=== PATIENT | female | born 1965 | race Caucasian/White ===

== ENCOUNTER → 2016-09-26 | Outpatient (CLI) | payer BC ==
[~2016-09-26] MED LIST: COREG 3.125M3.125 MG PO; COUMADIN5 MG PO; FLEXERIL10 MG PO; LOMOTIL 2.5MG.2.5 MG PO; MECLIZINE HYDRO25 MG PO; PAXIL20 MG PO; PYRIDIUM 200MG200 MG PO; TOPROL XL 100M100 MG PO; TYLENOL W/CODEI1 TA2 PO; WARFARIN SOD5 MG PO; XARELTO15 MG PO; ZOFRAN4 MG PO
--- NOTE | 2016-09-27 13:56 | RADIOLOGY REPORT PS360 ---
DIG MAMM-SCREEN [place] W/CAD CAD Screening ORDERING PHYSICIAN : DANE NEWMAN PATIENT AGE: 51 years GENDER: Female COMPARISON: Previous mammograms: July 2012, September INDICATION: Routine screening no new complaints. No hormones. Noncontributory family history. 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 R2 CAD reviewed. FINDINGS: Fairly Low-density breast bilaterally. Minimal residual fibroglandular elements No dominant mass nor suspicious calcifications either breast. RIGHT BREAST: The minor area stippled density at the central right breast reflecting stable feature, unchanged since at least 2011. Not of concern LEFT BREAST: Prominent vein at the left breast is again noted similar to prior study. Unchanged. Any other prominent venous structures left chest left arm? ... IMPRESSION: Stable bilateral mammogram. No new areas of concern 1 BI-RADS CATEGORY: 1 RECOMMENDED FOLLOWUP: 12M 12 MONTH FOLLOW-UP (A letter has been sent to the patient regarding results of the study.)
== END ==
LOC: RAD 08:17
DX: Z12.31 Encounter for screening mammogram for malignant neoplasm of breast (principal)
CPT/HCPCS: G0202

== ENCOUNTER 2016-10-17 07:53 | Outpatient (CLI) | payer BC | END 2016-10-17 13:42 | LOC: ACC 07:53 | DX: I82.409 Acute embolism and thrombosis of unspecified deep veins of unspecified lower extremity (principal); Z79.01 Long term (current) use of anticoagulants; Z51.81 Encounter for therapeutic drug level monitoring | CPT/HCPCS: G0463 ==

== ENCOUNTER 2017-07-17 07:49 | Outpatient (CLI) | payer BC | END 2017-07-17 09:47 | LOC: ACC 07:49 | DX: I82.409 Acute embolism and thrombosis of unspecified deep veins of unspecified lower extremity (principal); Z79.01 Long term (current) use of anticoagulants; Z51.81 Encounter for therapeutic drug level monitoring | CPT/HCPCS: G0463 ==

== ENCOUNTER 2017-08-02 11:42 | Emergency (ER) | payer BC ==
[~2017-08-02] VITALS: Ht 165.1 cm; Wt 122.5 kg
--- OUTSIDE RECORDS SUMMARY | 2017-08-02 11:53 | External Medical Summary Rpt | CCD ---
Author Author , ANKIT PHAM Address Unknown Phone Care Team Providers Care Compressor Repairer Name Role Phone Alvaro Lopez MD, Unavailable Unavailable Alvaro Lopez MD Purpose Continuity of Care Document - 10-17-2013 through 2016 Problems Code Diagnosis DOS Provider Status 200.70 200.70 10-22-2013 [place] LARGE CELL [facility] LYMPHOMA, [facility] UNS SITE, EXTRANODAL & SOLID ORGAN 278.00 278.00 10-22-2013 [place] OBESITY, [facility] 285.9 285.9 10-22-2013 [place] ANEMIA [facility] 300.00 300.00 10-22-2013 [place] ANXIETY [facility] STATE [facility] 311 311 10-22-2013 [place] DEPRESSIVE [facility] DISORDER [facility] NEC 415.19 415.19 OTH 10-22-2013 [place] PULMON [facility] EMBOLISM/IN Hospital FARCT 427.61 427.61 10-22-2013 [place] ATRIAL [facility] PREMATURE [facility] BEATS 427.69 427.69 10-22-2013 [place] PREMATURE [facility] BEATS [facility] 453.42 453.42 10-22-2013 [place] ACUTE [facility] VENOUS [facility] EMBOLISM & THROMBOSIS DEEP VESSELS DISTAL LE 530.81 530.81 10-22-2013 [place] ESOPHAGEAL [facility] REFLUX Hospital 553.3 553.3 10-22-2013 [place] DIAPHRAGMAT [facility] IC HERNIA Hospital 693.0 693.0 DRUG 10-22-2013 [place] DERMATITIS [facility] E934.2 E934.2 ADV 10-22-2013 [place] EFF [facility] ANTICOAGULA Hospital NTS Allergies, Adverse Reactions, Alerts Type Drug Allergy Propensity to adverse reactions to drug Adverse Reaction to Substance Substance Reaction Severity Rivaroxaban rash Unknown Verapamil EXACERBATION OF PVC'S Unknown Oxycodone EXACERBATION OF PVC'S Unknown Hydrocodone EXACERBATION OF PVC'S Severe Medications Na ND Rx Da Fi Fi Am Da Di Ph RX Ph St me C No te ll ll ou ys ag ar # ys at rm s nt no ma ic us Or Da si cy ia de te s n re d CO 00 01 1 No UM 05 -3 AD 60 1- Lo IN 17 20 ng 47 14 er 10 0 Ac MG ti ve TA BL ET MA 00 01 1 No PA 90 -3 P 41 1- Lo 32 98 20 ng 5 26 14 er MG 1 Ac TA ti BL ve ET CO 00 01 2 No UM 05 -2 AD 60 9- Lo IN 17 20 ng 37 14 er 7. 5 5 Ac MG ti ve TA BL ET AC 00 01 4 No YC 09 -2 LO 38 8- Lo 94 20 ng R 30 14 er 40 1 0 Ac MG ti ve TA BL ET ME 49 01 4 No TO 88 -2 IN 40 8- Lo OL 40 20 ng OL 60 14 er 1 COCHRAN Ac CC ti ve ER 10 0 MG TA B PA 00 01 4 No RO 90 -2 XE 45 8- Lo TI 67 20 ng NE 76 14 er 1 HC Ac L ti 20 ve MG TA BL ET He 00 01 0 No pa 40 -2 ri 91 8- Lo n 40 20 ng 5, 23 14 er 00 1 0 Ac Un ti it ve s/ Ml Sy ri ng e CO 00 01 1 No UM 05 -2 AD 60 8- Lo IN 17 20 ng 5 27 14 er 0 MG Ac ti TA ve BL ET 00 01 4 No AI 12 -2 FE 10 8- Lo NE 63 20 ng SI 81 14 er N 0 DM Ac ti SY ve RU P HE 00 01 4 No PA 40 -2 RI 97 7- Lo N- 76 20 ng D5 10 14 er W 3 25 Ac ,0 ti 00 ve UN IT /5 00 ML Sa 63 01 1 No li 80 -2 ne 70 7- Lo 10 20 ng Fl 07 14 er us 5 h Ac 10 ti ML ve Sy ri ng e DI 00 01 0 No PH 90 -2 EN 45 7- Lo HY [address] 66 14 er AM 1 IN Ac E ti 25 ve MG CA PS UL E RA 00 01 0 No D- 27 -2 IS 01 7- Lo OV 31 20 ng UE 63 14 er -3 5A 70 Ac ; ti 10 ve 0M L SO 00 01 0 No DI 40 -2 UM 94 7- Lo 88 20 ng CH 82 14 er LO 0 RI Ac DE ti ve 0. 9% AL RA 63 01 0 No D- 80 -2 SA 70 7- Lo LI 10 20 ng NE 07 14 er 5A FL Ac US ti H ve 10 ML SY RI NG E He 00 01 0 No pa 40 -2 ri 91 7- Lo n 40 20 ng 5, 23 14 er 00 1 0 Ac Un ti it ve s/ Ml Sy ri ng e Vital Signs 10-22-2013 09:55 Name Value Interpretat Reference Comment ion Range Body 98.0 [degF] Temperature BP 73 mm[Hg] Diastolic BP Systolic 137 mm[Hg] Heart 79 /min Rate/Pulse Respiratory 18 /min Rate 10-22-2013 08:01 Name Value Interpretat Reference Comment ion Range O2% 95 % 10-17-2013 23:18 Name Value Interpretat Reference Comment ion Range Height 165.10 cm Weight 115.214 kg Measured 10-17-2013 17:17 Name Value Interpretat Reference Comment ion Range Body 98.7 [degF] Temperature BP 89 mm[Hg] Diastolic BP Systolic 142 mm[Hg] Heart 105 /min Rate/Pulse O2% 98 % Respiratory 20 /min Rate Weight 0 [oz_av] Measured Results Labs Lab Lab Date Result Refere Interp Status Commen Order Detail nces retati t Range on Whole blood INR measurement (07-17-2017 08:15) Whole = 2.4 0.9-1.1 complet blood 017 ed INR 08:15 measure ment Comment: Comment: Results sent to: Alvaro Lopez MD 07/17/17 0942 Comment: Nain Alan Pharmacist recommendation for Warfarin Comment: therapy is: PATIENT INR 2.4 TODAY VIA FINGERSTICK. Comment: RECOMMENDED PATIENT CONTINUE WITH WARFARIN 5 MG DAILY. Comment: Comment: FOR DETAILED INFORMATION-PLEASE REVIEW PROGRESS NOTE Comment: IN THE ASSESSMENTS AND ANTICOAGULATION CLINIC SECTION Comment: ANTICOAGULATION CLINIC IN PCI/CLINICAL REVIEW Comment: INDICATION INR RANGE Comment: Comment: THERAPY FOR DVT, PE, ATRIAL FIB; 2.0 - 3.0 Comment: PROPHYLAXIS FOR VTE Comment: Comment: THERAPY FOR MECHANICAL HEART 2.5 - 3.5 Comment: VALVE; PREVENTION OF SYSTEMIC Comment: EMBOLISM SECONDARY TO AMI PROTIME/INR (10-22-2013 06:15) PROTHRO 25.4 9.9-11. complet MBIN 014 SECONDS 6 ed TIME 06:15 INR Bld 02-01-2 2.35 0.9-1.1 complet 014 UNK ed 06:15 ACT PARTIAL THROMBO TIME (10-21-2013 21:15) ACT Greater 25.3-32 High complet PARTIAL 014 than .0 alert ed 21:15 275.0 THROMBO SECONDS TIME PROTIME/INR (10-21-2013 21:15) PROTHRO 22.7 9.9-11. complet MBIN 014 SECONDS 6 ed TIME 21:15 INR Bld 2.11 0.9-1.1 complet 014 UNK ed 21:15 ACT PARTIAL THROMBO TIME (10-21-2013 14:00) ACT 113.3 25.3-32 High complet PARTIAL 014 SECONDS .0 alert ed 14:00 THROMBO TIME PROTIME/INR (10-21-2013 06:40) PROTHRO 17.4 9.9-11. complet MBIN 014 SECONDS 6 ed TIME 06:40 INR Bld 1.62 0.9-1.1 complet 014 UNK ed 06:40 ACT PARTIAL THROMBO TIME (10-21-2013 06:40) ACT 84.0 25.3-32 High complet PARTIAL 014 SECONDS .0 alert ed 06:40 THROMBO TIME CBC with AUTO DIFF (10-21-2013 06:40) WBC # 5.3 4.8-10. complet Bld 014 K/MM3 8 ed Auto 06:40 RBC # 3.96 4.2-5.4 complet Bld 014 M/mm3 ed Auto 06:40 Hgb 11.7 12.2-16 complet Bld-mCn 014 g/dL .2 ed c 06:40 Hct Fr 33.1 % 37.0-47 complet Bld 014 .0 ed 06:40 MCV RBC 83.5 fl 82.2-97 complet 014 .8 ed 06:40 MCH RBC 29.4 pg 27-31.2 complet Qn 014 ed Auto 06:40 MEAN 35.2 31.8-35 complet CORPUSC 014 g/dl .4 ed ULAR 06:40 HGB CONC RDW RBC 16.3 % 11.5-17 complet Auto 014 .5 ed 06:40 Platele 311 142-424 complet t Bld 014 K/mm3 ed Ql 06:40 Manual MEAN 8.4 fl 7.4-10. complet PLATELE 014 4 ed T 06:40 VOLUME Granulo 47.0 % 37.0-80 complet cytes 014 .0 ed Fr Bld 06:40 Auto LYMPH % 43.7 % 10-50.0 complet 014 ed 06:40 Monocyt 6.2 % 1.7-9.3 complet es Fr 014 ed Bld 06:40 Auto Eosinop 2.6 % 0.1-12. complet hil Fr 014 0 ed Bld 06:40 Auto Basophi 0.5 % 0.1-2.0 complet ls Fr 014 ed Bld 06:40 Auto Granulo 2.5 1.8-7.8 complet cytes # 014 K/mm3 ed Bld 06:40 Auto Lymphoc 2.3 0.7-4.5 complet ytes Fr 014 K/mm3 ed Bld 06:40 Auto Monocyt 0.3 0.1-1.0 complet es # 014 K/mm3 ed Bld 06:40 Auto Eosinop 0.1 0.0-0.4 complet hil # 014 K/mm3 ed Bld 06:40 Auto Basophi 0.0 0-0.2 complet ls # 014 K/MM3 ed Bld 06:40 Auto ACT PARTIAL THROMBO TIME (10-20-2013 23:23) ACT 72.8 25.3-32 High complet PARTIAL 014 SECONDS .0 alert ed 23:23 THROMBO TIME ACT PARTIAL THROMBO TIME (10-20-2013 16:20) ACT 95.8 25.3-32 High complet PARTIAL 014 SECONDS .0 alert ed 16:20 THROMBO TIME ACT PARTIAL THROMBO TIME (10-20-2013 06:15) ACT 88.9 25.3-32 High complet PARTIAL 014 SECONDS .0 alert ed 06:15 THROMBO TIME ACT PARTIAL THROMBO TIME (10-19-2013 22:29) ACT 52.4 25.3-32 High complet PARTIAL 014 SECONDS .0 alert ed 22:29 THROMBO TIME ACT PARTIAL THROMBO TIME (10-19-2013 15:00) ACT 48.6 25.3-32 complet PARTIAL 014 SECONDS .0 ed 15:00 THROMBO TIME PROTIME/INR (10-19-2013 06:15) PROTHRO 11.0 9.9-11. complet MBIN 014 SECONDS 6 ed TIME 06:15 INR Bld 1.03 0.9-1.1 complet 014 UNK ed 06:15 ACT PARTIAL THROMBO TIME (10-19-2013 06:15) ACT 64.7 25.3-32 High complet PARTIAL 014 SECONDS .0 alert ed 06:15 THROMBO TIME CBC with AUTO DIFF (10-19-2013 06:15) WBC # 5.8 4.8-10. complet Bld 014 K/MM3 8 ed Auto 06:15 RBC # 3.87 4.2-5.4 complet Bld 014 M/mm3 ed Auto 06:15 Hgb 11.4 12.2-16 complet Bld-mCn 014 g/dL .2 ed c 06:15 Hct Fr 33.0 % 37.0-47 complet Bld 014 .0 ed 06:15 MCV RBC 85.2 fl 82.2-97 complet 014 .8 ed 06:15 MCH RBC 29.6 pg 27-31.2 complet Qn 014 ed Auto 06:15 MEAN 34.7 31.8-35 complet CORPUSC 014 g/dl .4 ed ULAR 06:15 HGB CONC RDW RBC 15.8 % 11.5-17 complet Auto 014 .5 ed 06:15 Platele 336 142-424 complet t Bld 014 K/mm3 ed Ql 06:15 Manual MEAN 7.2 fl 7.4-10. complet PLATELE 014 4 ed T 06:15 VOLUME Granulo 48.8 % 37.0-80 complet cytes 014 .0 ed Fr Bld 06:15 Auto LYMPH % 41.7 % 10-50.0 complet 014 ed 06:15 Monocyt 6.2 % 1.7-9.3 complet es Fr 014 ed Bld 06:15 Auto Eosinop 2.4 % 0.1-12. complet hil Fr 014 0 ed Bld 06:15 Auto Basophi 0.9 % 0.1-2.0 complet ls Fr 014 ed Bld 06:15 Auto Granulo 2.8 1.8-7.8 complet cytes # 014 K/mm3 ed Bld 06:15 Auto Lymphoc 2.4 0.7-4.5 complet ytes Fr 014 K/mm3 ed Bld 06:15 Auto Monocyt 0.4 0.1-1.0 complet es # 014 K/mm3 ed Bld 06:15 Auto Eosinop 0.1 0.0-0.4 complet hil # 014 K/mm3 ed Bld 06:15 Auto Basophi 0.1 0-0.2 complet ls # 014 K/MM3 ed Bld 06:15 Auto ACT PARTIAL THROMBO TIME (10-18-2013 23:57) ACT 56.3 25.3-32 High complet PARTIAL 014 SECONDS .0 alert ed 23:57 THROMBO TIME ACT PARTIAL THROMBO TIME (10-18-2013 16:45) ACT 53.4 25.3-32 High complet PARTIAL 014 SECONDS .0 alert ed 16:45 THROMBO TIME ACT PARTIAL THROMBO TIME (10-18-2013 09:30) ACT 42.2 25.3-32 complet PARTIAL 014 SECONDS .0 ed 09:30 THROMBO TIME BASIC METABOLIC PANEL (10-18-2013 06:40) Glucose 102 74-106 complet 014 mg/dL ed Bld-mCn 06:40 c BUN 9 mg/dL 7-18 complet Bld-mCn 014 ed c 06:40 Creat 0.8 0.6-1.0 complet SerPl-m 014 mg/dL ed Cnc 06:40 Creat 155 50-200 complet Cl 014 ML/MIN ed predict 06:40 ed SerPl C-G-vRa te GFR/BSA 76 59- complet .pred 014 ML/MIN ed SerPl 06:40 Schwart z-vRate Sodium 140 136-145 complet SerPl-s 014 mmoL/L ed Cnc 06:40 Potassi 3.5 3.5-5.1 complet um 014 mmoL/L ed SerPl-s 06:40 Cnc Chlorid 104 98-107 complet e 014 mmoL/L ed SerPl-s 06:40 Cnc CO2 30 21.0-32 complet SerPl-s 014 mmoL/L .0 ed Cnc 06:40 Calcium 8.7 8.5-10. complet 014 mg/dL 1 ed SerPl-m 06:40 Cnc CBC with AUTO DIFF (10-18-2013 06:40) WBC # 6.4 4.8-10. complet Bld 014 K/MM3 8 ed Auto 06:40 RBC # 3.94 4.2-5.4 complet Bld 014 M/mm3 ed Auto 06:40 Hgb 11.4 12.2-16 complet Bld-mCn 014 g/dL .2 ed c 06:40 Hct Fr 33.9 % 37.0-47 complet Bld 014 .0 ed 06:40 MCV RBC 86.1 fl 82.2-97 complet 014 .8 ed 06:40 MCH RBC 28.8 pg 27-31.2 complet Qn 014 ed Auto 06:40 MEAN 33.5 31.8-35 complet CORPUSC 014 g/dl .4 ed ULAR 06:40 HGB CONC RDW RBC 15.8 % 11.5-17 complet Auto 014 .5 ed 06:40 Platele 349 142-424 complet t Bld 014 K/mm3 ed Ql 06:40 Manual MEAN 7.6 fl 7.4-10. complet PLATELE 014 4 ed T 06:40 VOLUME Granulo 48.0 % 37.0-80 complet cytes 014 .0 ed Fr Bld 06:40 Auto LYMPH % 43.7 % 10-50.0 complet 014 ed 06:40 Monocyt 5.6 % 1.7-9.3 complet es Fr 014 ed Bld 06:40 Auto Eosinop 2.1 % 0.1-12. complet hil Fr 014 0 ed Bld 06:40 Auto Basophi 0.6 % 0.1-2.0 complet ls Fr 014 ed Bld 06:40 Auto Granulo 3.1 1.8-7.8 complet cytes # 014 K/mm3 ed Bld 06:40 Auto Lymphoc 2.8 0.7-4.5 complet ytes Fr 014 K/mm3 ed Bld 06:40 Auto Monocyt 0.4 0.1-1.0 complet es # 014 K/mm3 ed Bld 06:40 Auto Eosinop 0.1 0.0-0.4 complet hil # 014 K/mm3 ed Bld 06:40 Auto Basophi 0.0 0-0.2 complet ls # 014 K/MM3 ed Bld 06:40 Auto ACT PARTIAL THROMBO TIME (10-18-2013 03:50) ACT 44.6 25.3-32 complet PARTIAL 014 SECONDS .0 ed 03:50 THROMBO TIME COMPREHENSIVE METABOLIC PANEL (10-17-2013 17:45) Glucose 99 74-106 complet 014 mg/dL ed Bld-mCn 17:45 c BUN 10 7-18 complet Bld-mCn 014 mg/dL ed c 17:45 Creat 0.8 0.6-1.0 complet SerPl-m 014 mg/dL ed Cnc 17:45 GFR/BSA 76 59- complet .pred 014 ML/MIN ed SerPl 17:45 Schwart z-vRate Sodium 138 136-145 complet SerPl-s 014 mmoL/L ed Cnc 17:45 Potassi 3.8 3.5-5.1 complet um 014 mmoL/L ed SerPl-s 17:45 Cnc Chlorid 101 98-107 complet e 014 mmoL/L ed SerPl-s 17:45 Cnc CO2 30 21.0-32 complet SerPl-s 014 mmoL/L .0 ed Cnc 17:45 Calcium 9.1 8.5-10. complet 014 mg/dL 1 ed SerPl-m 17:45 Cnc Prot 7.7 6.4-8.2 complet SerPl-m 014 gm/dL ed Cnc 17:45 Albumin 3.3 3.4-5.0 complet 014 gm/dL ed SerPl-m 17:45 Cnc Globuli 4.4 1.3-3.2 complet n 014 gm/dL ed Ser-mCn 17:45 c Albumin 0.8 UNK 1.1-1.8 complet /Glob 014 ed SerPl-m 17:45 Rto Bilirub 0.6 0.2-1.0 complet 014 mg/dL ed SerPl-m 17:45 Cnc AST 18 U/L 15-37 complet SerPl-c 014 ed Cnc 17:45 ALT 33 U/L 12-78 complet SerPl-c 014 ed Cnc 17:45 ALP 108 U/L 50-136 complet SerPl-c 014 ed Cnc 17:45 CBC with AUTO DIFF (10-17-2013 17:45) WBC # 10-17-2 6.1 4.8-10. complet Bld 014 K/MM3 8 ed Auto 17:45 RBC # 10-17-2 4.33 4.2-5.4 complet Bld 014 M/mm3 ed Auto 17:45 Hgb 12.5 12.2-16 complet Bld-mCn 014 g/dL .2 ed c 17:45 Hct Fr 36.7 % 37.0-47 complet Bld 014 .0 ed 17:45 MCV RBC 84.7 fl 82.2-97 complet 014 .8 ed 17:45 MCH RBC 28.8 pg 27-31.2 complet Qn 014 ed Auto 17:45 MEAN 01-27-2 34.0 31.8-35 complet CORPUSC 014 g/dl .4 ed ULAR 17:45 HGB CONC RDW RBC 15.5 % 11.5-17 complet Auto 014 .5 ed 17:45 Platele 409 142-424 complet t Bld 014 K/mm3 ed Ql 17:45 Manual MEAN 7.3 fl 7.4-10. complet PLATELE 014 4 ed T 17:45 VOLUME Granulo 59.6 % 37.0-80 complet cytes 014 .0 ed Fr Bld 17:45 Auto LYMPH % 32.9 % 10-50.0 complet 014 ed 17:45 Monocyt 5.5 % 1.7-9.3 complet es Fr 014 ed Bld 17:45 Auto Eosinop 1.4 % 0.1-12. complet hil Fr 014 0 ed Bld 17:45 Auto Basophi 0.7 % 0.1-2.0 complet ls Fr 014 ed Bld 17:45 Auto Granulo 3.6 1.8-7.8 complet cytes # 014 K/mm3 ed Bld 17:45 Auto Lymphoc 2 2.0 0.7-4.5 complet ytes Fr 014 K/mm3 ed Bld 17:45 Auto Monocyt 2 0.3 0.1-1.0 complet es # 014 K/mm3 ed Bld 17:45 Auto Eosinop 2 0.1 0.0-0.4 complet hil # 014 K/mm3 ed Bld 17:45 Auto Basophi 10-17-2 0.0 0-0.2 complet ls # 014 K/MM3 ed Bld 17:45 Auto Encounters Encounter Start End Date Code Location Performer Type Date Inpatient IMP Sacha Lopez MD ([place]) 4 17:25 4 09:55 [facility]
--- OUTSIDE RECORDS SUMMARY | 2017-08-02 11:53 | External Medical Summary Rpt | CCD ---
Author Author , ANKIT PHAM Address Unknown Phone Care Team Providers Care Fruit Raiser Name Role Phone Alvaro Lopez MD, Unavailable Unavailable Alvaro Lopez MD Purpose Continuity of Care Document - 10-17-2013 through 2016 Problems Code Diagnosis DOS Provider Status 200.70 200.70 10-22-2013 [place] LARGE CELL [facility] LYMPHOMA, [facility] UNS SITE, EXTRANODAL & SOLID ORGAN 278.00 278.00 10-22-2013 [place] OBESITY, [facility] 285.9 285.9 10-22-2013 [place] ANEMIA [facility] 300.00 300.00 10-22-2013 [place] ANXIETY [facility] STATE [facility] 311 311 10-22-2013 [place] DEPRESSIVE [facility] DISORDER [facility] NEC 415.19 415.19 OTH 10-22-2013 [place] PULMON [facility] EMBOLISM/IN Hospital FARCT 427.61 427.61 10-22-2013 [place] ATRIAL [facility] PREMATURE [facility] BEATS 427.69 427.69 10-22-2013 [place] PREMATURE [facility] BEATS [facility] 453.42 453.42 10-22-2013 [place] ACUTE [facility] VENOUS [facility] EMBOLISM & THROMBOSIS DEEP VESSELS DISTAL LE 530.81 530.81 10-22-2013 [place] ESOPHAGEAL [facility] REFLUX Hospital 553.3 553.3 10-22-2013 [place] DIAPHRAGMAT [facility] IC HERNIA Hospital 693.0 693.0 DRUG 10-22-2013 [place] DERMATITIS [facility] E934.2 E934.2 ADV 10-22-2013 [place] EFF [facility] ANTICOAGULA Hospital NTS Allergies, Adverse Reactions, Alerts [...] 49 01 4 No TO 88 -2 AL 40 8- Lo OL 40 20 ng [...] Lopez MD ([place]) 4 17:25 4 09:55 [facility]
--- OUTSIDE RECORDS SUMMARY | 2017-08-02 11:54 | External Medical Summary Rpt | CCD ---
Author Author [employer]duent Organization Conduent Address Unknown Phone Unavailable Purpose Continuity of Care Document - through 2016
--- OUTSIDE RECORDS SUMMARY | 2017-08-02 11:54 | External Medical Summary Rpt | CCD ---
Demographics Preferred Language Mosotho Marital Status Unknown Druze Affiliation Unknown Race Unknown Ethnic Group Unknown Author Author , ANKIT Organization ANKIT Address Unknown Phone [email or web address] Immunization Name Date Rout CVX Reac Dose Comm Prov Is Faci e tion ent ider Refu lity Give sed n Td 03-0 9 999 Hist H149 No H149 (brenna 4-19 [facility] lt), 97 al Info adso rmat rbed ion - Sour ce Unsp ecif ied
--- OUTSIDE RECORDS SUMMARY | 2017-08-02 11:54 | External Medical Summary Rpt ---
Author Author ANKIT Steve, [employer]KIT [employer] Organization [employer] Address Unknown Phone Unavailable Results INR in Blood by Coagulation assay Observa Value Referen Units Interpr Notes Date tion ce etation Range INR in 0.9 - 1.1 No High Results Jul 17 Blood by informati sent to: 2016 8:15 Coagulati on in [place] AM on assay source Alvaro MINA data E. 07/17/17 0942BlIon andre Pharmackoby t recommend ation for Warfarint herapy is: PATIENT INR 2.4 TODAY VIA FINGERSTI CK.RECOMM ENDED PATIENT CONTINUE WITH WARFARIN 5 MG DAILY. *FOR DETAILED INFORMATI ON-PLEASE REVIEW PROGRESS NOTEI N THE ASSESSMEN TS AND ANTICOAGU LATION CLINIC SECTIONAN TICOAGULA TION CLINIC IN PCI/CLINI RONI REVIEWIND ICATION INR RANGETHER APY FOR DVT, PE, ATRIAL FIB; 2.0 - 3.0PROPHY LAXIS FOR VTETHERAP Y FOR MECHANICA L HEART 2.5 - 3.5VALVE; PREVENTIO N OF SYSTEMICE MBOLISM SECONDARY TO AMI INR in Blood by Coagulation assay Observa Value Referen Units Interpr Notes Date tion ce etation Range INR in 0.9 - 1.1 No High Results Jun 05 Blood by informati sent to: 2016 8:15 Coagulati on in [place] AM on assay source Alvaro MINA data E. 06/05/17 1442Blank Ion chu Pharmacis t recommend ation for Warfarint herapy is: PATIENT INR 2.8 TODAY VIA FINGERSTI CK.RECOMM ENDED PATIENT CONTINUE WITH CURRENT DOSE OF WARFARIN5 MG DAILY AT THIS TIME. WILL FOLLOW UP IN 6 WEEKS. *FOR DETAILED INFORMATI ON-PLEASE REVIEW PROGRESS NOTEI N THE ASSESSMEN TS AND ANTICOAGU LATION CLINIC SECTIONAN TICOAGULA TION CLINIC IN PCI/CLINI RONI REVIEWIND ICATION INR RANGETHER APY FOR DVT, PE, ATRIAL FIB; 2.0 - 3.0PROPHY LAXIS FOR VTETHERAP Y FOR MECHANICA L HEART 2.5 - 3.5VALVE; PREVENTIO N OF SYSTEMICE MBOLISM SECONDARY TO AMI INR in Blood by Coagulation assay Observa Value Referen Units Interpr Notes Date tion ce etation Range INR in 0.9 - 1.1 No High Results Mar 27 Blood by informati sent to: 2016 Coagulati on in [place] 11:00 AM on assay source Alvaro MINA data E. 03/27/17 1115Blank Ion chu Pharmacis t recommend ation for Warfarint herapy is: PATIENT INR 2.4 TODAY VIA FINGERSTI CK.RECOMM ENDED PATIENT CONTINUE WITH CURRENT DOSE OF WARFARIN5 MG DAILY AT THIS TIME. WILL FOLLOW UP IN 6 WEEKS ASPATIENT HAS BEEN STABLE AT THE CURRENT DOSE FOR SEVERALMO NTHS NOW.F OR DETAILED INFORMATI ON-PLEASE REVIEW PROGRESS NOTEI N THE ASSESSMEN TS AND ANTICOAGU LATION CLINIC [facility] IN PCI/CLINI RONI REVIEWIND ICATION INR RANGETHER APY FOR DVT, PE, ATRIAL FIB; 2.0 - 3.0PROPHY LAXIS FOR VTETHERAP Y FOR MECHANICA L HEART 2.5 - 3.5VALVE; PREVENTIO N OF SYSTEMICE MBOLISM SECONDARY TO AMI INR in Blood by Coagulation assay Observa Value Referen Units Interpr Notes Date tion ce etation Range INR in 0.9 - 1.1 No High Results Mar 03 Blood by informati sent to: 2016 Coagulati on in [place] 11:30 AM on assay source Alvaro MINA data E. 03/03/17 1355Blank Ion chu Pharmacis t recommend ation for Warfarint herapy is: PATIENT INR 3.0 TODAY VIA FINGERSTI CK.RECOMM ENDED PATIENT TAKE REDUCED DOSE OF WARFARIN 2.5 MGTODAY AND TOMORROW, THEN RESUME 5 MG DAILY THEREAFTE R.PATIENT HAS BEEN TAKING STEROIDS DAILY SINCE LAST WEEK. FOR DETAILED INFORMATI ON-PLEASE REVIEW PROGRESS NOTEI N THE ASSESSMEN TS AND ANTICOAGU LATION CLINIC [facility] PCI/CLINI RONI REVIEWIND ICATION INR RANGETHER APY FOR DVT, PE, ATRIAL FIB; 2.0 - 3.0PROPHY LAXIS FOR VTETHERAP Y FOR MECHANICA L HEART 2.5 - 3.5VALVE; PREVENTIO N OF SYSTEMICE MBOLISM SECONDARY TO AMI INR in Blood by Coagulation assay Observa Value Referen Units Interpr Notes Date tion ce etation Range INR in 0.9 - 1.1 No High Results February 17 Blood by informati sent to: 2016 Coagulati on in [place] 11:00 AM on assay source Alvaro MINA data E. 02/17/17 1400Blank Ion chu mmy Pharmacis t recommend ation for Warfarint herapy is: PATIENT INR 2.4 TODAY VIA FINGERSTI CK. PATIENTST ARTING PROTONIX 40 MG TODAY. RECOMMEND ED PATIENTCO NTINUE WITH WARFARIN 5 MG DAILY AT THIS POINT AND WILLFOLLO W UP IN 2 WEEKS. *FOR DETAILED INFORMATI ON-PLEASE REVIEW PROGRESS NOTEI N THE ASSESSMEN TS AND ANTICOAGU LATION CLINIC SECTIONAN TICOAGULA TION CLINIC IN PCI/CLINI RONI REVIEWIND ICATION INR RANGETHER APY FOR DVT, PE, ATRIAL FIB; 2.0 - 3.0PROPHY LAXIS FOR VTETHERAP Y FOR MECHANICA L HEART 2.5 - 3.5VALVE; PREVENTIO N OF SYSTEMICE MBOLISM SECONDARY TO AMI
--- OUTSIDE RECORDS SUMMARY | 2017-08-02 11:54 | External Medical Summary Rpt | CCD ---
Demographics Preferred Language Vietnamese Marital Status Unknown Oriental Orthodox Affiliation Unknown Race Unknown Ethnic Group Unknown Author Author , [employer] Organization [employer] Address Unknown Phone [email or web address] Immunization Name Date Rout CVX Reac Dose Comm Prov Is Faci e tion ent ider Refu lity Give sed n Td 03-0 9 999 Hist H149 No H149 (brenna 4-19 [facility] lt), 97 al Info adso rmat rbed ion - Sour ce Unsp ecif ied
--- OUTSIDE RECORDS SUMMARY | 2017-08-02 11:54 | External Medical Summary Rpt ---
Author Author [employer] Steve, [employer] Organization [employer] Address Unknown Phone Unavailable [...] informati sent to: 2016 Coagulati on in [place] 11:00 AM on assay source Alvaro MINA [...] THE ASSESSMEN TS AND ANTICOAGU [facility]ATION CLIN[facility] IN PCI/CLINI RONI REVIEWIND ICATION INR RANGETHER [...] informati sent to: 2016 Coagulati on in [place] 11:30 AM on assay source Alvaro MINA [...] ASSESSMEN TS [facility] PCI/CLINI RONI REVIEWIND ICATION INR [...]
[2017-08-02] MEDS ORDERED: TOPROL XL 25MG25 MG PO (12:05)
[2017-08-02] MEDS ORDERED: COUMADIN1 MG PO (12:06)
[2017-08-02] MEDS ORDERED: PAXIL10 MG PO (12:06)
--- NOTE | 2017-08-02 12:18 | Urgent Treatment Center Report ---
History of Present Issue Date/Time Seen by Provider 08/02/17 1218 Visit Reason Pt arrived:Walked Presenting Problem:PT STATES CHEST CONGESTION AND COUGH SINCE THURSDAY. PT STATES SHE HAS A HISTORY OF BLOOD CLOTS IN HER RIGHT LUNG Location if Accident: Onset of symptoms date/time:/ or onset unknown for:MEDICAL HX UNKNOWN Have you (or family members/close friends) recently traveled outside the [place]? N If Yes, where/when: Have you had exposure to infectious disease within the past month? TB? Other? Specify: Source patient, RN notes reviewed Exam Limitations no limitations Comment 52-year-old female presents for shortness of breath, heaviness in the chest with pains radiating into her posterior back, patient reports cough and wheezing. Patient reports history of PEs last one in 2013 does take Coumadin. ALLERGIES Coded Allergies: hydrocodone (08/02/17) oxycodone (08/02/17) rivaroxaban (From XARELTO) (08/02/17) Home Medications Reported Medications Metoprolol Succinate Xl (Toprol Xl) 25 MG PO DAILY Warfarin Sodium (Coumadin) 1 MG PO DAILY PAROXETINE HCL (Paxil) 10 MG PO DAILY History Medical History General CAD? No Angina: No SC: No Hypertension? No Hyperlipidemia? No CHF? No DVT? No PE? No COPD? No Asthma? No Anemia? No GERD? No Gastric ulcers? No GI Bleed? No Hernia? No Thyroid Problems? No Hypothyroidism? No CVA? No Seizures? No Diabetes? No Renal Insuffiency? No UTI? No Stones? No BPH? No GB Disease: No Nephritic Syndrome? No Asplenia? No Hepatitis? No Sickle Cell Disease? No Arthritis? No Migraines? No Cataracts? No Glaucoma? No MRSA? No HIV? No TB? No Anxiety? No Depression? No Cancer? No More? No Immunization HX DT/Tetanus Unknown Surgical Hx Previous Surgery?N Social History Smoking Hx Smoker: Never Smoker Tobacco: No Alcohol Alcohol: No Review of Systems All Other Systems Reviewed and Negative Respiratory see HPI, cough, shortness of breath, wheezing Physical Exam Vital Signs Vital Signs Date Time Temp Pulse Resp B/P Pulse O2 O2 Flow FiO2 Ox Delivery Rate 08/02 1203 98.2 83 20 148/87 96 - WBC >12,000 or <4,000 or 10% bands? 2 or more SIRS Criteria Met? B/P:148/87 MAP:107 Creatinine >2.0? UA output<0.5ml/kg/hr for 2 hrs? Platelet count >100,000? Lactate >2.0mmol/1? INR >1.2 or PTT > than 60 sec? Evidence of Organ Dysfunction? Provider documented clinical suspician of infection? Sepsis Criteria Count: 1 Sepsis Risk: General Appearance normal appearance, WD/WN, no apparent distress Ear, Nose, Throat hearing grossly normal, normal ENT inspection, normal pharynx Respiratory Status Yes: trachea midline, chest symmetrical, non tender chest. No: respiratory distress. Lung Sounds anterior: normal breath sounds, lungs clear. posterior: normal breath sounds, lungs clear. bilateral: wheezing. left: wheezing. right: normal breath sounds , lungs clear. Cardiovascular normal exam, regular rate/rhythm, no peripheral edema Neurologic alert, normal exam, oriented x 3 Medical Decision Making LABS/Meds/Orders Pt receiving controlled substance in ED? No Results/Orders Laboratory Tests 08/02/17 1230: Sodium 136, Potassium 4.0, Chloride 102, Carbon Dioxide 26, BUN 10, Creatinine 0.9, Estimated Creat Clear 140, Estimated GFR (MDRD) 65, Glucose 101, Calcium 8.9, Total Bilirubin 0.6, AST 19, ALT 19, Alkaline Phosphatase 77, Total Protein 7.4, Albumin 3.5, Globulin 3.9 H, Albumin/Globulin Ratio 0.9 L, PT 10.9, INR 1.01, WBC 5.4, RBC 5.13, Hgb 14.4, Hct 44.5, MCV 86.7, RDW 13.7, Plt Count 215, MPV 7.6, Gran % 52.6, Gran # 2.8, Lymphocytes % 38.1, Monocytes % 6.7, Eosinophils % 2.0, Basophils % 0.6, Lymphocytes # 2.1, Monocytes # 0.4, Eosinophils # 0.1, Basophils # 0.0, PUBS MCHC 32.4, MCH 28.1 Orders Procedure Date/time Status PROTHROMBIN TIME 08/02 1218 Complete CBC WITH AUTO DIFF 08/02 1218 Complete CHEM 12 PROFILE 08/028 Complete CHEST(2 VIEWS-NOT PORTABLE) 08/02 1212 Active Departure Departure Time of Disposition 1316 Disposition Still a Patient Clinical Impression Primary Impression: Shortness of breath Condition STABLE Referrals John MINA,Alvaro Matt (Family) Comments sent to ed for eval at [id number]
[2017-08-02 12:39] LABS: HEMOGLOBIN 14.4 g/dL (12.2-16.2); LYMPH # 2.1 K/mm3 (0.7-4.5); LYMPH % 38.1 % (10-50.0)
--- NOTE | 2017-08-02 13:46 | Emergency Room Report ---
See Addendum History of Present Illness Time Seen by MD Cordova Presenting Problem in Triage Pt arrived:Walked Presenting Problem:PT STATES CHEST CONGESTION AND COUGH SINCE THURSDAY. PT STATES SHE HAS A HISTORY OF BLOOD CLOTS IN HER RIGHT LUNG PT SENT FROM [facility] TO ER FOR FURTHER EVALUATION R/T NON-THERAPEUTIC INR AND PT IS ON COUMADIN. 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 N Clinical Suspician of Infection? N Mental Status: 1 - Regular (Normal Baseline) Sepsis Risk:Low Sepsis Risk Have you (or family members/close friends) recently traveled outside the [place]? N If Yes, where/when: Have you had exposure to infectious disease within the past month? N TB? Other? Specify: 52 years old white female with history of non-Hodgkin's lymphoma who developed cough not nonproductive and sugars of breath for the last 5 days. She presented today to the urgent treatment care and she had negative chest x-ray and labs. Her Coumadin was nontherapeutic. Using the concern whether blood clot she was sent to the ER for a CTA chest to rule out PE. She did not receive any treatment. She denies having chest pain palpitations nausea vomiting. Source patient, RN notes reviewed, family, old records Exam Limitations no limitations ALLERGIES Coded Allergies: hydrocodone (08/02/17) oxycodone (08/02/17) rivaroxaban (From XARELTO) (08/02/17) Home Medications Reported Medications Metoprolol Succinate Xl (Toprol Xl) 25 MG PO DAILY Warfarin Sodium (Coumadin) 1 MG PO DAILY PAROXETINE HCL (Paxil) 10 MG PO DAILY History Medical History General CAD? No Angina: No NV: No Hypertension? No Hyperlipidemia? No CHF? No DVT? No PE? No COPD? No Asthma? No Anemia? No GERD? No Gastric ulcers? No GI Bleed? No Hernia? No Thyroid Problems? No Hypothyroidism? No CVA? No Seizures? No Diabetes? No Renal Insuffiency? No End Stage Renal Disease? No UTI? No Stones? No BPH? No GB Disease: No Nephritic Syndrome? No Asplenia? No Hepatitis? No Sickle Cell Disease? No Arthritis? No Migraines? No Cataracts? No Glaucoma? No MRSA? No HIV? No TB? No Anxiety? No Depression? No Cancer? No More? 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 Respiratory see HPI, cough, shortness of breath Cardiovascular no symptoms reported Gastrointestinal no symptoms reported Genitourinary no symptoms reported. Musculoskeletal no symptoms reported Skin no symptoms reported Psychiatric/Neurological no symptoms reported Physical Exam Vital Signs Vital Signs Date Time Temp Pulse Resp B/P Pulse O2 O2 Flow FiO2 Ox Delivery Rate 08/02 1643 78 20 137/64 96 08/02 1439 78 20 137/91 96 08/02 1329 98.2 79 18 163/97 97 08/02 1203 98.2 83 20 148/87 96 - WBC >12,000 or <4,000 or 10% bands? 2 or more SIRS Criteria Met? B/P:163/97 MAP:119 Creatinine >2.0? UA output<0.5ml/kg/hr for 2 hrs? Platelet count >100,000? Lactate >2.0mmol/1? INR >1.2 or PTT > than 60 sec? Evidence of Organ Dysfunction? Provider documented clinical suspician of infection? N Sepsis Criteria Count: 0 Sepsis Risk: Low Sepsis Risk General Appearance normal appearance, WD/WN, no apparent distress Eye Exam - bilateral eye normal exam, bilateral eye PERRL, bilateral eye EOMI Ear, Nose, Throat hearing grossly normal, normal ENT inspection Neck normal inspection, non-tender, supple, full range of motion Respiratory Status Yes: trachea midline, chest symmetrical, non tender chest. No: respiratory distress. Lung Sounds bilateral: normal breath sounds, lungs clear. 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 No Results/Orders Laboratory Tests 08/02/17 1320: Troponin I < 0.02, B-Natriuretic Peptide 59, D-Dimer 150 08/02/17 1230: Sodium 136, Potassium 4.0, Chloride 102, Carbon Dioxide 26, BUN 10, Creatinine 0.9, Estimated Creat Clear 140, Estimated GFR (MDRD) 65, Glucose 101, Calcium 8.9, Total Bilirubin 0.6, AST 19, ALT 19, Alkaline Phosphatase 77, Total Protein 7.4, Albumin 3.5, Globulin 3.9 H, Albumin/Globulin Ratio 0.9 L, PT 10.9, INR 1.01, WBC 5.4, RBC 5.13, Hgb 14.4, Hct 44.5, MCV 86.7, RDW 13.7, Plt Count 215, MPV 7.6, Gran % 52.6, Gran # 2.8, Lymphocytes % 38.1, Monocytes % 6.7, Eosinophils % 2.0, Basophils % 0.6, Lymphocytes # 2.1, Monocytes # 0.4, Eosinophils # 0.1, Basophils # 0.0, PUBS MCHC 32.4, MCH 28.1 Current Medication Orders Sig/Domenic Start time Last Medication Dose Route Stop Time Status Admin Iopamidol 60 ML ONCE ONE 08/02 1615 UNV 08/02 IV 08/02 1616 1607 Sodium Chloride 40 ML ONCE ONE 08/02 1615 UNV 08/02 IV 08/02 1616 1608 Enoxaparin Sodium 120 MG ONCE ONE 08/02 1400 DC 11 SC 08/02 1401 1419 Enoxaparin Sodium 0 .STK-MED ONE 08/02 1354 DC SC Ceftriaxone Sodium 0 .STK-MED ONE 08/02 1350 DC IV Sodium Chloride 1,000 ML .STK-MED ONE 08/02 1350 DC IV Sodium Chloride 50 ML .STK-MED ONE 08/02 1349 DC IV Albuterol/Ipratropium 0 .STK-MED ONE 08/02 1348 DC INH Albuterol/Ipratropium 3 ML ONCE ONE 08/02 1345 DC 08/02 INH 08/02 1346 1349 Ceftriaxone Sodium 1 GM ONCE ONE 08/02 1345 DC 08/02 Sodium Chloride 50 ML IV 08/02 1414 1419 Sodium Chloride 10 ML PRN PRN 08/02 1345 AC IV 08/03 1341 Sodium Chloride 1,000 ML .Q1H1M 08/02 1345 DC 08/02 IV 08/02 1445 1419 Sodium Chloride 10 ML PRN PRN 08/02 1345 AC IV 08/03 1342 Orders Procedure Date/time Status DIET-NOTHING BY MOUTH 08/02 D Active CTA-CHEST 08/[address] CHEST W/PE PROTOCOL REQ 08/02 1429 Complete RT REQUEST DUONEB 08/02 1342 Active IV SALINE LOCK 08/02 1341 Active TROPONIN I 08/02 1339 Complete D-DIMER 08/02 1339 Complete BRAIN NATRIURETIC PEPTIDE 08/02 1339 Complete PROTHROMBIN TIME 08/02 1218 Complete CBC WITH AUTO DIFF 08/02 1218 Complete CHEM 12 PROFILE 08/02 1218 Complete XRAY/CT/US XRAY/CT/US XRAY chest XR interpretation by reviewed by me Xray Results normal/NAD, no infiltrates Departure Departure Time of Disposition 1345 Disposition DC/XFER from ER to [facility] Clinical Impression Primary Impression: Shortness of breath Secondary Impressions: Acute bronchitis, Subtherapeutic anticoagulation Condition STABLE Referrals John MINA,Alvaro Matt (Family) Additional Instructions discussed with Dr. Lopez her pcp, whoa dvised to increase coumadin to 10 ng and be seen in 2 days in the office. ZIthromax combivent inhaler q [address] Lopez in 2 days Check with coumadin clinic Discharge Counseling Counseled pt/family regarding diagnosis, test results, medications/RX, home care, follow up needs Prescriptions Current Visit Scripts Benzonatate (Tessalon Perle) 100 MG PO Q4HP PRN cough #30 SGL Azithromycin (Zithromax) 250 MG PO DAILY #6 TAB USE DIRECTED. ALBUTEROL (Proventil Hfa Inhaler) 1-2 PUFF IH Q4-6H PRN #1 CAN Ref 2 ED Critical Care Critical Care No If Critical Care minutes are documented, the time involved in the performance of seperately reportable procedures was not counted toward critical care time documented. I directly delivered medical care to this critically ill and/or injured patient. Timely evaluation and treatment was necessary to address the significant organ system(s) dysfunction present in this patient. at 1701
--- NOTE | 2017-08-02 14:53 | RADIOLOGY REPORT PS360 ---
CHEST(2 VIEWS-NOT PORTABLE) HISTORY: cough, ORDERING PHYSICIAN: Brenda Castañeda PATIENT AGE: 52 years COMPARISON: None available FINDINGS: The cardiomediastinal silhouette and pulmonary vascularity are within normal limits. No lobar consolidation or collapse is evident. There is increased density in the left upper lobe overlying the anterior aspect of the left first rib which may very well be due to summation artifact. An underlying nodule cannot be excluded. There are no previous exams available for comparison. The remaining lungs are clear. No acute bony anomalies evident. IMPRESSION: Possible left upper lobe nodule versus summation artifact from the age aspect of the left first rib. Follow-up chest or CT scan may confirm stability
[2017-08-02] MEDS ORDERED: TESSALON PERLE100 M1 PO (17:01)
[2017-08-02] MEDS ORDERED: ZITHROMAX Z-PA250 M2 PO (17:01)
[2017-08-02] MEDS ORDERED: PROVENTIL0.09 MG/A1 IH (17:01)
[2017-08-02 17:09] VITALS: BP 137/64
--- NOTE | 2017-08-02 19:43 | RADIOLOGY REPORT PS360 ---
CTA-CHEST HISTORY: Shortness of breath, history of pulmonary embolus SOA. HX OF P.E. ORDERING PHYSICIAN: Rangel Bedoya MD PATIENT AGE: 52 years TECHNIQUE: Helical acquisition obtained following the bolus administration of 60 mL of Isovue 370 followed by a saline bolus. Axial, sagittal, and coronal reformatted images are generated and reviewed. COMPARISON: None FINDINGS: PULMONARY ARTERIES:No pulmonary embolus evident. AORTA:No acute finding. No thoracic aortic aneurysm or dissection evident LUNGS:Unremarkable. No mass or consolidation. PLEURAL SPACES:No significant effusion. No evidence of pneumothorax. HEART:Unremarkable. Normal heart size. No significant pericardial effusion. MEDIASTINAL AND HILAR STRUCTURES:No mediastinal or hilar mass evident. No dominant adenopathy. BONY STRUCTURES:No acute bony abnormalities apparent LYMPH NODES:No enlarged lymph nodes evident UPPER ABDOMEN:Unremarkable IMPRESSION: No evidence of pulmonary embolus. Negative CTA chest with no acute finding
== END 2017-08-02 17:13 | disposition short-term general hospital (02) ==
LOC: UTC 11:42 → ER 11:49 → UTC 11:49 → ER 17:13
PROVIDERS: Nurse Practitioner Family
DX: J20.9 Acute bronchitis, unspecified (principal); D68.9 Coagulation defect, unspecified; Z85.72 Personal history of non-Hodgkin lymphomas; Z86.711 Personal history of pulmonary embolism; Z79.01 Long term (current) use of anticoagulants; Z88.5 Allergy status to narcotic agent; Z88.8 Allergy status to other drugs, medicaments and biological substances; Z79.899 Other long term (current) drug therapy
CPT/HCPCS: Q9967

== ENCOUNTER 2017-08-04 11:59 | Outpatient (CLI) | payer BC ==
[~2017-08-04 11:59] MED LIST changes: +COUMADIN1 MG PO; +PAXIL10 MG PO; +PROVENTIL0.09 MG/A1 IH; +TESSALON PERLE100 M1 PO; +TOPROL XL 25MG25 MG PO; +ZITHROMAX Z-PA250 M2 PO
== END 2017-08-04 14:28 ==
LOC: ACC 11:59
DX: I82.409 Acute embolism and thrombosis of unspecified deep veins of unspecified lower extremity (principal); Z79.01 Long term (current) use of anticoagulants; Z51.81 Encounter for therapeutic drug level monitoring
CPT/HCPCS: G0463

== ENCOUNTER 2017-08-07 09:40 | Outpatient (CLI) | payer BC | END 2017-08-07 13:04 | LOC: ACC 09:40 | DX: I82.409 Acute embolism and thrombosis of unspecified deep veins of unspecified lower extremity (principal); Z79.01 Long term (current) use of anticoagulants; Z51.81 Encounter for therapeutic drug level monitoring | CPT/HCPCS: G0463 ==

== ENCOUNTER 2017-08-10 09:35 | Outpatient (CLI) | payer BC | END 2017-08-10 16:07 | LOC: ACC 09:35 | DX: I82.409 Acute embolism and thrombosis of unspecified deep veins of unspecified lower extremity (principal); Z79.01 Long term (current) use of anticoagulants; Z51.81 Encounter for therapeutic drug level monitoring | CPT/HCPCS: G0463 ==

== ENCOUNTER 2017-08-26 07:28 | Outpatient (CLI) | payer BC | END 2017-08-26 15:00 | LOC: ACC 07:28 | DX: I82.409 Acute embolism and thrombosis of unspecified deep veins of unspecified lower extremity (principal); Z79.01 Long term (current) use of anticoagulants; Z51.81 Encounter for therapeutic drug level monitoring | CPT/HCPCS: G0463 ==